=== PATIENT | male | born 1975 ===

== ENCOUNTER 2024-10-01 06:28 | Day surgery (SDC) | payer OTHER, SELFPAY | END 2024-10-01 11:58 | disposition home or self-care (01) | LOC: GI 06:28 | PROVIDERS: ATTENDING PHYSICIAN Internal Medicine Gastroenterology | DX: Z12.11 Encounter for screening for malignant neoplasm of colon (principal); Q43.8 Other specified congenital malformations of intestine; D12.7 Benign neoplasm of rectosigmoid junction; K63.5 Polyp of colon | CPT/HCPCS: 45385; 45380; 88305 ==